=== PATIENT | male | born 1960 | race Caucasian/White ===

== ENCOUNTER → 2016-12-11 | Outpatient (CLI) | payer BC ==
--- NOTE | 2016-12-11 08:49 | XR ---
EXAMINATION TYPE: XR scoliosis survey DATE OF EXAM: 12/11/2016 8:37 AM COMPARISON: NONE HISTORY: Scoliosis FINDINGS: There is a S-shaped scoliotic curvature. Hypertrophic change and multilevel degenerative di sc disease noted. Scoliosis estimated at 18 degrees. IMPRESSION: 1. 18 degrees scoliotic curvature with multilevel degenerative disc disease.
[2016-12-11 08:52] LABS: Basophils % (A) 0 %; CH 30.3; CHCM 33.9; Eosinophils # (A) 0.2 k/uL (0-0.7); Eosinophils % (A) 2 %; HCT 40.8 % (39.0-53.0); HDW 2.61; HGB 13.7 gm/dL (13.0-17.5); Luc # (Auto) 0.14; Luc % (Auto) 2; Lymphocytes # (A) 1.2 k/uL (1.0-4.8); Lymphocytes % (A) 13 %; MCH 30.1 pg (25.0-35.0); MCHC 33.5 g/dL (31.0-37.0); MCV 89.9 fL (80.0-100.0); Mean Platelet Volume 6.9; Monocytes # (A) 0.8 k/uL (0-1.0); Monocytes % (A) 9 %; Neutrophils # (A) 6.7 k/uL (1.3-7.7); Neutrophils % (A) 74 %; RBC 4.54 m/uL (4.30-5.90); RDW 12.3 % (11.5-15.5); WBC (Perox) 9.53
[2016-12-11 13:05] LABS: ALT 42 U/L (21-72); AST 17 U/L (17-59); Alkaline Phosphatase 85 U/L (38-126); Anion Gap 11 mmol/L; Blood Urea Nitrogen 24 mg/dL (9-20); Calcium 9.8 mg/dL (8.4-10.2); Carbon Dioxide 29 mmol/L (22-30); Chloride 105 mmol/L (98-107); Cholesterol 188 mg/dL (<200); Glucose 104 mg/dL (74-99); HDL Cholesterol 49 mg/dL (40-60); Non-African American GFR(MDRD) >60 (>60 ml/min/1.73 sqM); Sodium 145 mmol/L (137-145); Total Bilirubin 0.6 mg/dL (0.2-1.3); Total Protein 7.4 g/dL (6.3-8.2); Triglycerides 94 mg/dL (<150)
[2016-12-11 13:49] LABS: Hepatitis C Virus IgG Index 0.01
[2016-12-11 13:56] LABS: Hepatitis C Virus IgG Ab Negative (Negative)
[2016-12-11 14:24] LABS: Prostate Specific Antigen 1.98 ng/mL (0.00-4.00)
== END | disposition home or self-care (01) ==
LOC: LABWHC1 08:10
PROVIDERS: ATTEND Family Medicine
DX: M41.9 Scoliosis, unspecified (principal); M51.9 Unspecified thoracic, thoracolumbar and lumbosacral intervertebral disc disorder
CPT/HCPCS: 36415; 72082; 80053; 80061; 84153; 84439; 84443; 85025; 86803

== ENCOUNTER → 2016-12-29 | Outpatient (CLI) | payer BC ==
--- NOTE | 2016-12-29 18:32 | XR ---
EXAMINATION TYPE: XR ribs RT DATE OF EXAM: 12/29/2016 6:13 PM COMPARISON: NONE HISTORY: Rib pain TECHNIQUE: 4 views FINDINGS: I see no pleural effusion or pneumothorax. Right lung is clear of infiltrate. There is no s ign of a rib fracture. IMPRESSION: Negative right rib exam.
== END | disposition home or self-care (01) ==
LOC: RADXRMAIN 17:58
PROVIDERS: ATTEND Family Medicine
DX: R07.81 Pleurodynia (principal)

== ENCOUNTER 2017-02-01 07:59 | Day surgery (SDC) | payer BC ==
[2017-01-28 09:37] VITALS: BMI 29.1
[~2017-02-01 07:59] MED LIST: DEXAMETHASONE SOD PHOSPHATE 10 MG/ML 1 ML VIAL IV ONE; HYDROmorphone 1 MG/ML 1 ML SYRINGE IVP PRN; LACTATED RINGERS 1,000 ML IV SCH; LIDOCAINE 1% 20 ML VIAL (10MG/ML) FOR IV START INTRADERMA PRN; MIDAZOLAM 2 MG/2 ML VIAL IV PRN; ONDANSETRON 4 MG/2 ML VIAL IVP ONE; Pre Op ABX Message 1 EACH MISC MISCELLANE ONE; SCOPOLAMINE 1.5MG/72HR PATCH TRANSDERM ONE
[2017-02-01] MEDS ORDERED: LACTATED RINGERS 1,000 ML IV ONE ×2 (08:21→11:39)
[2017-02-01] MEDS ORDERED: LIDOCAINE 1% 20 ML VIAL (10MG/ML) FOR IV START INTRADERMA ONE (08:27)
[2017-02-01] MEDS ORDERED: HEPARIN SODIUM,PORCINE 5,000 UNIT/ML 1 ML VIAL SQ ONE (08:41)
[2017-02-01] MEDS ORDERED: LIDOCAINE 1% INJ 10MG/ML (20 ML MDV) SQ ONE ×3 (08:49→09:53)
[2017-02-01] MEDS ORDERED: PHENYLEPHRINE-0.9% NACL SYG 1 MG/10 ML SYRINGE ONE (09:20)
[2017-02-01] MEDS ORDERED: PROPOFOL 10 MG/ML 20 ML VIAL IV ONE (09:20)
[2017-02-01] MEDS ORDERED: SUCCINYLCHOLINE CHLORIDE 100 MG/5 ML SYR IV ONE (09:20)
[2017-02-01] MEDS ORDERED: MIDAZOLAM 2 MG/2 ML VIAL ONE (09:20)
[2017-02-01] MEDS ORDERED: fentaNYL (PF) 50 MCG/ML 2 ML AMP ONE (09:20)
[2017-02-01] MEDS ORDERED: LIDOCAINE 1% INJ 10MG/ML (20 ML MDV) ONE (09:20)
--- NOTE | 2017-02-01 10:39 | P.OP ---
Date of Procedure: 02/01/17 Preoperative Diagnosis: Soft tissue mass on mid back Postoperative Diagnosis: Probable lipoma mid back Procedure(s) Performed: Excision of soft tissue mass mid back Anesthesia: MATIAS Surgeon: Judy Gaona Estimated Blood Loss (ml): 18 IV fluids (ml): 700 Pathology: other (Soft tissue mass mid back) Condition: stable Disposition: PACU Indications for Procedure: Patient is a 56-year-old gentleman with a soft tissue mass on his back which has increased in size and causing discomfort to him. Operative Findings: Probable lipoma mid back Description of Procedure: Patient is a 48-year-old gentleman with an increasing mass in his mid back. This is causing discomfort to him. We've discussed the fact that this most likely represents a lipoma however patient wishes it to be removed. Patient was taken to the operating room and following induction of anesthesia the back was prepped and draped in a sterile fashion. An incision was made over the palpable abnormality. This was carried down through the skin and subcutaneous tissue onto the area of the muscle of the mid back. Wide excision of a soft tissue probable lipoma was performed. The lesion was approximately 7 cm in length and approximately 5-1/2 cm wide. There were several vessels which were entering into this and these were ligated and divided. The lesion was removed on the fascia of the muscle of the back. The extension of the dissection was through the skin and subcutaneous tissue. After we were assured that hemostasis was attained the wound was irrigated. A small HUSAM drain was placed. The deep tissues were closed with 3-0 Vicryl suture. The skin was closed with interrupted mattress nylon sutures. The drain was secured with a silk suture. The patient tolerated the procedure in stable condition. All instrument and sponge counts were correct at the end of the case.
--- NOTE | 2017-02-01 10:41 | P.DS ---
Providers Attending physician: Judy Gaona Primary care physician: Sebastian Moy Plan - Discharge Summary New Discharge Prescriptions: HYDROcodone/APAP 5-325MG [Guys 5] 1 - 2 each PO Q4H PRN #20 tab PRN Reason: Pain Discharge Medication List Ibuprofen [Motrin] 600 mg PO Q6HR PRN 01/28/17 [History] HYDROcodone/APAP 5-325MG [Guys 5] 1 - 2 each PO Q4H PRN #20 tab 02/01/17 [Rx] Follow up Appointment(s)/Referral(s): Judy Gaona MD [STAFF PHYSICIAN] - 3 Days Activity/Diet/Wound Care/Special Instructions: Takes patient drain care Do not drive today Do not drive if taking Guys Patient may shower after 48 hours Keep pressure dressing on incision Discharge Disposition: HOME SELF-CARE
[2017-02-01 10:51] VITALS: TEMP 97.2
[2017-02-01 11:02] VITALS: RESP 18
[2017-02-01 12:04] VITALS: BP 168/92; PULSE 103
== END 2017-02-01 13:05 | disposition home or self-care (01) ==
LOC: OR 07:59
PROVIDERS: ATTEND Surgery
DX: D17.1 Benign lipomatous neoplasm of skin and subcutaneous tissue of trunk (principal); Z88.5 Allergy status to narcotic agent
CPT/HCPCS: 21931; 88304; J2250; J1644; J1100; J2405; J2001; J3010; J2370; J0330; J2704

== ENCOUNTER → 2017-10-12 | Outpatient (CLI) | payer BC ==
--- NOTE | 2017-10-12 14:12 | US ---
EXAMINATION TYPE: US venous doppler duplex LE LT DATE OF EXAM: 10/12/2017 1:50 PM COMPARISON: NONE CLINICAL HISTORY: M79.672 PAIN LT FOOT,M25.472 EFFUSION LT ANKLE,M25.572. SIDE PERFORMED: Left TECHNIQUE: The lower extremity deep venous system is examined utilizing real time linear array sonog mendez with graded compression, doppler sonography and color-flow sonography. VESSELS IMAGED: External Iliac Vein (EIV) Common Femoral Vein Deep Femoral Vein Greater Saphenous Vein * Femoral Vein Popliteal Vein Small Saphenous Vein * Proximal Calf Veins (* superficial vessels) Left Leg: Negative for DVT Grayscale, color doppler, spectral doppler imaging performed of the deep veins of the left lower extr emity. There is normal flow, compressibility, vascular waveforms. IMPRESSION: No ultrasound evidence for acute DVT in the left lower extremity.
== END | disposition home or self-care (01) ==
LOC: RADUSWWP 13:26
PROVIDERS: ATTEND Orthopaedic Surgery
DX: M19.072 Primary osteoarthritis, left ankle and foot (principal); M21.6X2 Other acquired deformities of left foot; I80.9 Phlebitis and thrombophlebitis of unspecified site

== ENCOUNTER → 2017-10-13 | Outpatient (CLI) | payer BC ==
[2017-10-13 07:30] LABS: CH 29.3; CHCM 32.8; HCT 37.6 % (39.0-53.0); HDW 2.69; MCH 28.7 pg (25.0-35.0); MCV 89.7 fL (80.0-100.0); Mean Platelet Volume 6.4; RBC 4.18 m/uL (4.30-5.90); RDW 12.2 % (11.5-15.5); WBC 9.6 k/uL (3.8-10.6)
[2017-10-13 09:43] LABS: ALT 34 U/L (21-72); AST 16 U/L (17-59); Alkaline Phosphatase 68 U/L (38-126); Anion Gap 9 mmol/L; Blood Urea Nitrogen 19 mg/dL (9-20); C Reactive Protein 89.5 mg/L (<10.0); Calcium 9.5 mg/dL (8.4-10.2); Carbon Dioxide 28 mmol/L (22-30); Chloride 106 mmol/L (98-107); Glucose 109 mg/dL (74-99); Non-African American GFR(MDRD) >60 (>60 ml/min/1.73 sqM); Potassium 4.8 mmol/L (3.5-5.1); Rheumatoid Factor, Qnt <9 IU/mL (<12); Sodium 143 mmol/L (137-145); Total Bilirubin 0.4 mg/dL (0.2-1.3)
[2017-10-13 11:38] LABS: ANA w/Reflex to Titer NEGATIVE (NEGATIVE)
[2017-10-13 12:20] LABS: Erythrocyte Sedimentation Rate 97 mm/hr (0-15)
[2017-10-14 10:04] LABS: Lyme IgG/IgM 0.5 Index; Lyme IgG/IgM Interp NEGATIVE (NEGATIVE)
[2017-10-14 12:57] LABS: HLA B27 Comment SEEBELOW
== END | disposition home or self-care (01) ==
LOC: LABWHC1 06:33
PROVIDERS: ATTEND Orthopaedic Surgery
DX: M19.072 Primary osteoarthritis, left ankle and foot (principal); M21.6X2 Other acquired deformities of left foot
CPT/HCPCS: 36415; 80053; 83036; 83520; 84443; 85027; 85652; 86038; 86060; 86140; 86431; 86618; 86812

== ENCOUNTER → 2017-11-02 | Outpatient (CLI) | payer BC ==
--- NOTE | 2017-11-03 08:57 | NM ---
EXAMINATION TYPE: NM WBC limited DATE OF EXAM: 11/03/2017 COMPARISON: NONE HISTORY: Left foot pain TECHNIQUE: Following administration of 25.8 mCi Tc99m Ceretec. Images obtained 4 hour(s) and 20 lelo r(s) post injection. FINDINGS: There is increased uptake within the soft tissues on the 20 hour image overlying the distal margin of the left foot. No definite uptake within the bone to suggest osteomyelitis. IMPRESSION: Correlate for cellulitis. No diagnostic evidence of osteomyelitis.
== END | disposition home or self-care (01) ==
LOC: RADNMMAIN 06:47
PROVIDERS: ATTEND Orthopaedic Surgery
DX: M25.472 Effusion, left ankle (principal)
CPT/HCPCS: 78805; A9569

== ENCOUNTER 2022-01-06 08:48 | Observation (INO) | payer BC ==
[2022-01-06] MEDS ORDERED: SODIUM CHLORIDE 0.9% 1,000 ML IV STA (09:23)
[2022-01-06] MEDS ORDERED: MECLIZINE 12.5 MG TAB PO STA ×2 (09:23→11:46)
[2022-01-06] MEDS ORDERED: ONDANSETRON 4 MG/2 ML VIAL IVP STA (09:23)
[2022-01-06 09:52] LABS: Basophils % (A) 0 %; Eosinophils # (A) 0.1 k/uL (0-0.7); Eosinophils % (A) 2 %; HCT 41.5 % (39.0-53.0); HGB 14.3 gm/dL (13.0-17.5); Lymphocytes # (A) 0.5 k/uL (1.0-4.8); Lymphocytes % (A) 7 %; MCH 32.4 pg (25.0-35.0); MCHC 34.4 g/dL (31.0-37.0); Mean Platelet Volume 7.3; Monocytes # (A) 0.4 k/uL (0-1.0); Monocytes % (A) 6 %; Neutrophils # (A) 5.9 k/uL (1.3-7.7); Neutrophils % (A) 83 %; Platelet Count 225 k/uL (150-450); RBC 4.42 m/uL (4.30-5.90); RDW 14.7 % (11.5-15.5)
[2022-01-06 10:11] LABS: ALT 29 U/L (4-49); AST 25 U/L (17-59); African American GFR (CKD) >90 (>60 ml/min/1.73 sqM); Albumin 4.1 g/dL (3.5-5.0); Alkaline Phosphatase 76 U/L (38-126); Anion Gap 7 mmol/L; Blood Urea Nitrogen 16 mg/dL (9-20); Calcium 9.1 mg/dL (8.4-10.2); Carbon Dioxide 24 mmol/L (22-30); Chloride 107 mmol/L (98-107); Glucose 134 mg/dL (74-99); Non-African American GFR(CKD) >90 (>60 ml/min/1.73 sqM); Potassium 3.9 mmol/L (3.5-5.1); Sodium 138 mmol/L (137-145); Total Bilirubin 0.7 mg/dL (0.2-1.3); Total Protein 7.1 g/dL (6.3-8.2)
--- NOTE | 2022-01-06 10:32 | CT ---
EXAMINATION TYPE: CT brain wo con DATE OF EXAM: 01/06/2022 COMPARISON: None available HISTORY: Dizziness CT DLP: 1089 mGycm Automated exposure control for dose reduction was used. TECHNIQUE: Multiplanar CT scan of the brain without IV contrast administration. FINDINGS: Linear right superior frontal hyperdensity seen extending from the extra-axial to intra-axial locatio n likely representing a prominent vein and DVA. Otherwise unremarkable morphology of the cerebral hem ispheres, cerebellum and brainstem. No acute intracranial hemorrhage or gross acute cortical infarct. No midline shift, herniation or osmel triculomegaly. Unremarkable chamberlain-white matter differentiation, basal cisterns, sella and CP angles. No gross space-occupying lesion, vasogenic edema or mass effect. Unremarkable orbits. Clear visualize d paranasal sinuses and mastoid air cells. Unremarkable calvarial bones. 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 Otherwise unremarkable nonenhanced CT scan o f the brain.
--- NOTE | 2022-01-06 10:34 | XR ---
EXAMINATION TYPE: XR chest 1V portable DATE OF EXAM: 01/06/2022 COMPARISON: NONE HISTORY: Pain TECHNIQUE: Single frontal view of the chest is obtained. FINDINGS: There is no focal air space opacity, pleural effusion, or pneumothorax seen. The cardiac silhouette size is within normal limits. The osseous structures are intact. Heart size normal. Hype rinflation suggests COPD. No overt failure. Curvature of the spine with degenerative changes. IMPRESSION: No acute process.
[2022-01-06 10:41] LABS: Appearance,Urine Clear (Clear); Bilirubin,Urine Negative (Negative); Blood,Urine Negative (Negative); Color,Urine Yellow; Glucose,Urine (UA) Negative (Negative); Ketones,Urine 2+ (Negative); Leukocyte Esterase,Urine Negative (Negative); Nitrite,Urine Negative (Negative); PH, Urine 6.5 (5.0-8.0); Protein,Urine Negative (Negative); Specific Gravity,Urine 1.022 (1.001-1.035); Urobilinogen,Urine <2.0 mg/dL (<2.0)
[2022-01-06 10:54] LABS: Amphetamine Screen,Urine Not Detected (NotDetected); Barbiturate Screen,Urine Not Detected (NotDetected); Benzodiazepines Screen,Urine Not Detected (NotDetected); Cocaine Screen,Urine Not Detected (NotDetected); Methadone Screen, Urine Not Detected (NotDetected); Opiate Screen,Urine Not Detected (NotDetected); Oxycodone Screen, Urine Not Detected (NotDetected); Phencyclidine Screen,Urine Not Detected (NotDetected); Tricyclic Antidepressant,Urine Not Detected (NotDetected); Urn Cannabinoid Scrn Not Detected (NotDetected)
--- NOTE | 2022-01-06 11:25 | CT ---
EXAMINATION TYPE: CT angio head neck DATE OF EXAM: 01/06/2022 HISTORY: dizziness COMPARISON: Nonenhanced CT scan performed at the same time CT DLP: 598.9 mGycm. Automated Exposure Control for Dose Reduction was Utilized. TECHNIQUE: CTA scan of the neck is performed with IV Contrast, patient injected with 65 mL of Isovue 370, axial images are obtained, coronal and sagittal reformatted images are reviewed. 3D reconstruct ed images are created on an independent workstation and reviewed. FINDINGS: Bovine aortic arch. Scattered arterial atherosclerotic calcifications. Mild atherosclerotic plaques a re seen at the origin of the left internal carotid artery without significant stenosis or occlusion. Otherwise normal caliber and enhancement of the carotid and vertebral arteries in the neck without si gnificant stenosis, occlusion, dissection, aneurysm or AV malformation. Prominent right superior anterior frontal extra-axial cortical vein passing inferiorly into the right frontal lobe parenchyma likely representing a DVA. No surrounding hematoma, edema or abnormal enhanc ement. type left APPRENTICE/LINEMAN. Otherwise normal caliber and enhancement of the intracranial arteries without significant stenosis, o cclusion or aneurysm. Patent major intracranial venous sinuses. No intracranial abnormal enhancement. Degenerative changes of the cervical spine. IMPRESSION: Findings are suggestive of right frontal DVA as described above. No acute arterial abnormality, signi ficant stenosis or occlusion seen in the head or the neck arteries. Incidental findings as described above.
[2022-01-06] MEDS ORDERED: ONDANSETRON 4 MG/2 ML VIAL IVP PRN (12:14)
[2022-01-06] MEDS ORDERED: NALOXONE 0.4 MG/ML 1 ML VIAL IV PRN (12:14)
--- NOTE | 2022-01-06 12:19 | ED ---
General Adult HPI - General Chief complaint: Dizziness Stated complaint: Dizziness Time Seen by Provider: 01/06/22 09:05 Source: EMS, RN notes reviewed, old records reviewed Mode of arrival: EMS Limitations: no limitations - History of Present Illness Initial comments: Patient is a 61-year-old male with past medical history remarkable for prior anemia presents emergency Department complaining of new onset vertigo. It started approximately 24 hours ago. I evaluated the patient at approximately 9:30. Vertigo started yesterday approximate 10 AM. Describes it as a room spins sensation with associated nausea and vomiting. No other deficits. His d ifficulty in relating secondary to vertigo. When he lays down flat it seems to be improved. Denies any chest pain, shortness of breath. Denies any weakness, numbness. Denies any blurry vision or visual changes. His no other acute point at this time. No history of strokes. History of alcohol use. No history of vertigo. Denies any upper respiratory symptoms, ear pain, nasal drainage. Presents for further evaluation. - Related Data Home Medications Medication Instructions Recorded Confirmed Celecoxib [CeleBREX] 100 mg PO BID 01/06/22 01/06/22 Ferrous Sulfate [Slow Release Iron] 140 mg PO DAILY 01/06/22 01/06/22 Folic Acid 1 mg PO DAILY 01/06/22 01/06/22 Pantoprazole [Protonix] 40 mg PO DAILY 01/06/22 01/06/22 metHOTREXate sodium [Methotrexate] 20 mg PO TH 01/06/22 01/06/22 Allergies Allergy/AdvReac Type Severity Reaction Status Date / Time No Known Allergies Allergy Verified 01/06/22 10:32 Review of Systems ROS Statement: Those systems with pertinent positive or pertinent negative responses have been documented in the HPI. Review of Systems: CONST: Denies fever EYES: Denies blurry vision ENT: Denies nasal congestion C/V: Denies Chest pain RESP: Denies shortness of breath GI: Denies abdominal pain : Denies dysuria SKIN: Denies rash. MSK: Denies joint pain. NEURO: Endorses vertigo ROS Other: All systems not noted in ROS Statement are negative. Past Medical History Past Medical History: No Reported History History of Any Multi-Drug Resistant Organisms: None Reported Past Surgical History: Appendectomy Past Anesthesia/Blood Transfusion Reactions: No Reported Reaction Past Psychological History: No Psychological Hx Reported Smoking Status: Never smoker Past Alcohol Use History: Occasional Past Drug Use History: None Reported - Past Family History Mother Family Medical History: Cancer Additional Family Medical History / Comment(s): BREAST CANCER Sister(s) Family Medical History: Cancer Additional Family Medical History / Comment(s): BREAST CANCER General Exam - General Exam Comments Initial Comments: General: Appears in mild distress secondary to vertigo. HEAD: Normal with no signs of head trauma. EYES: PERRLA, EOMI, conjunctiva normal, no discharge. Pupils are 3 mm equal bilaterally. No nystagmus. ENT: Hearing grossly intact, normal oropharynx. RESPIRATORY: Clear breath sounds bilaterally. No wheezes, rales, or rhonchi. C/V: Regular rate and rhythm. S1 and S2 auscultated, no edema, peripheral pulses 2+ and intact throughout ABD: Abd is soft, nontender, nondistended EXT: Normal range of motion, no obvious deformity SKIN: No rashes or lesions observed on exposed skin. NEURO: Alert and oriented 4. Cranial nerves II through XII are intact. No focal sensory strength deficits. Cerebellar function appears to be intact as evident by normal finger to nose testing, [id number] testing. There is no dysdiadochokinesia. NIH stroke scale is 0. GCS is 15. HINTS exam is negative. Hernan-Hallpike exam is indeterminate. Patient does have symptoms of vertigo upon sitting up or standing. Has difficulty walking. Limitations: no limitations Course Vital Signs 01/06/22 01/06/22 01/06/22 08:49 11:26 14:23 Temperature 98.7 F 97.6 F 97.8 F Pulse Rate 75 69 80 Respiratory 18 16 16 Rate Blood Pressure 155/92 147/84 157/86 O2 Sat by Pulse 95 98 96 Oximetry Medical Decision Making - Medical Decision Making Based on patient's presentation and physical exam, I'm concerned for new onset vertigo for the patient. No obvious etiology. Difficult to determine central versus peripheral cause at this point. We will obtain CT imaging of the brain as well as CT angiogram of the brain. We also obtain basic laboratory studies as well as a cardiac workup. He was in agreement this plan. He will be admiNistered meclizine as well as a 1 L fluid bolus. He'll also be given Zofran per patient was in agreement with this plan. EKG showed no signs of acute ischemia. Laboratory studies were remarkable for no acute process. 2+ ketones and urine now. Covid is negative. Chest x-ray showed no acute cardiopulmonary process. Brain CT is did reveal developmental venous anomalies in the right frontal lobe, however no other acute process. CT angiogram redemonstrated the DVAs, however no other acute abnormality. On reevaluation, patient's vertigo is improved however still noticeably present when standing. Cannot ambulate. I would like to admit him at this time for further neurological evaluation and MRI. He was in agreement this plan. I consulted Dr. Blanco of neurology who agreed to evaluate the patient. MRI was ordered. I also spoke with the admitting team, Dr. Hong who accepted the patient. Patient will be admitted in stable condition at this time. - Lab Data Result diagrams: 01/06/22 09:40 01/06/22 09:40 Lab Results 01/06/22 01/06/22 01/06/22 Range/Units 09:40 09:40 09:40 WBC 7.0 (3.8-10.6) k/uL RBC 4.42 (4.30-5.90) m/uL Hgb 14.3 (13.0-17.5) gm/dL Hct 41.5 (39.0-53.0) % MCV 94.0 (80.0-100.0) fL MCH 32.4 (25.0-35.0) pg MCHC 34.4 (31.0-37.0) g/dL RDW 14.7 (11.5-15.5) % Plt Count 225 (150-450) k/uL MPV 7.3 Neutrophils % 83 % Lymphocytes % 7 % Monocytes % 6 % Eosinophils % 2 % Basophils % 0 % Neutrophils # 5.9 (1.3-7.7) k/uL Lymphocytes # 0.5 L (1.0-4.8) k/uL Monocytes # 0.4 (0-1.0) k/uL Eosinophils # 0.1 (0-0.7) k/uL Basophils # 0.0 (0-0.2) k/uL Sodium 138 (137-145) mmol/L Potassium 3.9 (3.5-5.1) mmol/L Chloride 107 (98-107) mmol/L Carbon Dioxide 24 (22-30) mmol/L Anion Gap 7 mmol/L BUN 16 (9-20) mg/dL Creatinine 0.80 (0.66-1.25) mg/dL Est GFR (CKD-EPI)AfAm >90 (>60 ml/min/1.73 sqM) Est GFR (CKD-EPI)NonAf >90 (>60 ml/min/1.73 sqM) Glucose 134 H (74-99) mg/dL Plasma Lactic Acid Barry 1.0 (0.7-2.0) mmol/L Calcium 9.1 (8.4-10.2) mg/dL Total Bilirubin 0.7 (0.2-1.3) mg/dL AST 25 (17-59) U/L ALT 29 (4-49) U/L Alkaline Phosphatase 76 (38-126) U/L Total Protein 7.1 (6.3-8.2) g/dL Albumin 4.1 (3.5-5.0) g/dL Urine Color Urine Appearance (Clear) Urine pH (5.0-8.0) Ur Specific Tribune (1.001-1.035) Urine Protein (Negative) Urine Glucose (UA) (Negative) Urine Ketones (Negative) Urine Blood (Negative) Urine Nitrite (Negative) Urine Bilirubin (Negative) Urine Urobilinogen (<2.0) mg/dL Ur Leukocyte Esterase (Negative) Urine Opiates Screen (NotDetected) Ur Oxycodone Screen (NotDetected) Urine Methadone Screen (NotDetected) Ur Propoxyphene Screen (NotDetected) Ur Barbiturates Screen (NotDetected) U Tricyclic Antidepress (NotDetected) Ur Phencyclidine Scrn (NotDetected) Ur Amphetamines Screen (NotDetected) U Methamphetamines Scrn (NotDetected) U Benzodiazepines Scrn (NotDetected) Urine Cocaine Screen (NotDetected) U Marijuana (THC) Screen (NotDetected) 01/06/22 Range/Units 10:20 WBC (3.8-10.6) k/uL RBC (4.30-5.90) m/uL Hgb (13.0-17.5) gm/dL Hct (39.0-53.0) % MCV (80.0-100.0) fL MCH (25.0-35.0) pg MCHC (31.0-37.0) g/dL RDW (11.5-15.5) % Plt Count (150-450) k/uL MPV Neutrophils % % Lymphocytes % % Monocytes % % Eosinophils % % Basophils % % Neutrophils # (1.3-7.7) k/uL Lymphocytes # (1.0-4.8) k/uL Monocytes # (0-1.0) k/uL Eosinophils # (0-0.7) k/uL Basophils # (0-0.2) k/uL Sodium (137-145) mmol/L Potassium (3.5-5.1) mmol/L Chloride (98-107) mmol/L Carbon Dioxide (22-30) mmol/L Anion Gap mmol/L BUN (9-20) mg/dL Creatinine (0.66-1.25) mg/dL Est GFR (CKD-EPI)AfAm (>60 ml/min/1.73 sqM) Est GFR (CKD-EPI)NonAf (>60 ml/min/1.73 sqM) Glucose (74-99) mg/dL Plasma Lactic Acid Barry (0.7-2.0) mmol/L Calcium (8.4-10.2) mg/dL Total Bilirubin (0.2-1.3) mg/dL AST (17-59) U/L ALT (4-49) U/L Alkaline Phosphatase (38-126) U/L Total Protein (6.3-8.2) g/dL Albumin (3.5-5.0) g/dL Urine Color Yellow Urine Appearance Clear (Clear) Urine pH 6.5 (5.0-8.0) Ur Specific Tribune 1.022 (1.001-1.035) Urine Protein Negative (Negative) Urine Glucose (UA) Negative (Negative) Urine Ketones 2+ H (Negative) Urine Blood Negative (Negative) Urine Nitrite Negative (Negative) Urine Bilirubin Negative (Negative) Urine Urobilinogen <2.0 (<2.0) mg/dL Ur Leukocyte Esterase Negative (Negative) Urine Opiates Screen Not Detected (NotDetected) Ur Oxycodone Screen Not Detected (NotDetected) Urine Methadone Screen Not Detected (NotDetected) Ur Propoxyphene Screen Not Detected (NotDetected) Ur Barbiturates Screen Not Detected (NotDetected) U Tricyclic Antidepress Not Detected (NotDetected) Ur Phencyclidine Scrn Not Detected (NotDetected) Ur Amphetamines Screen Not Detected (NotDetected) U Methamphetamines Scrn Not Detected (NotDetected) U Benzodiazepines Scrn Not Detected (NotDetected) Urine Cocaine Screen Not Detected (NotDetected) U Marijuana (THC) Screen Not Detected (NotDetected) - EKG Data -: EKG Interpreted by Me EKG Comments: 12-lead Electrocardiogram Interpretation Note EKG was reviewed and interpreted by myself. 12-lead ECG performed at 0855 is interpreted by me as revealing normal sinus rhythm at a rate of 68 beats per minute. Narvon is normal. WA interval is 175 ms, QRS duration is 92 ms, QTc is 434 ms.. There were no ST or T wave abnormalities to suggest myocardial ischemia or injury. R wave progression across the precordium was satisfactory. By my interpretation this EKG is non-diagnostic for acute ischemia. Disposition Clinical Impression: Vertigo Disposition: ADMITTED IP TO THIS HOSP Condition: Stable
--- NOTE | 2022-01-06 13:01 | P.HPIM ---
History of Present Illness This is a pleasant 61 years old male with no significant past medical history presents because of dizziness. he has history of recurrent cholangitis and he sees a catering coordinator. But last attack was about 4 years ago. Patient states yesterday morning he started having dizziness and felt like the room is spinning, it was severe enough to prevent him from walking associated with significant nausea but no vomiting, patient was not able to eat or have bowel movements is yesterday because of these. Denies any other symptoms, no headache or weakness or numbness. No blurred vision or slurred speech. 1 week earlier he saw his spot washer and diagnosed with right eye glaucoma and pain behind the right eye which is resolved now, her his spot washer treated him with monitoring for now with no medication. He denies chest pain or dyspnea. No abdominal pain. No urinary complaints. No fever He denies smoking, alcohol or illicit drugs Hemodynamically stable. Labs show an unremarkable CBC, BMP, liver enzymes, lactic acid is normal 1.0. Glucose is slightly up 134, urinalysis is negative except for 2+ ketones, urine drug screen is negative. CT of the brain: Suspect right superior frontal DVA (developmental venous an omaly) Chest x-ray: No acute process. CTA of the brain: Findings are suggestive of right frontal DVA. No acute arterial abnormality, significant stenosis or occlusion seen in the head or the neck arteries. In the emergency room patient was started on meclizine, normal saline Admitted with neurology consult Review of Systems CONSTITUTIONAL: No fever, no malaise, no fatigue. HEENT: No recent visual problems or hearing problems. Denied any sore throat. CARDIOVASCULAR: No orthopnea, PND, no palpitations, no syncope. PULMONARY: No shortness of breath, no cough, no hemoptysis. GASTROINTESTINAL: No diarrhea, no nausea, no vomiting, no abdominal pain. Normoactive bowel sounds. NEUROLOGICAL: No headaches, no weakness, no numbness. HEMATOLOGICAL: Denies any bleeding or petechiae. GENITOURINARY: Denies any burning micturition, frequency, or urgency. MUSCULOSKELETAL/RHEUMATOLOGICAL: Denies any joint pain, swelling, or any muscle pain. ENDOCRINE: Denies any polyuria or polydipsia. Past Medical History Past Medical History: No Reported History History of Any Multi-Drug Resistant Organisms: None Reported Past Surgical History: Appendectomy Past Anesthesia/Blood Transfusion Reactions: No Reported Reaction Past Psychological History: No Psychological Hx Reported Smoking Status: Never smoker Past Alcohol Use History: Occasional Past Drug Use History: None Reported - Past Family History Mother Family Medical History: Cancer Additional Family Medical History / Comment(s): BREAST CANCER Sister(s) Family Medical History: Cancer Additional Family Medical History / Comment(s): BREAST CANCER Medications and Allergies Home Medications Medication Instructions Recorded Confirmed Type Celecoxib [CeleBREX] 100 mg PO BID 01/06/22 01/06/22 History Ferrous Sulfate [Slow Release Iron] 140 mg PO DAILY 01/06/22 01/06/22 History Folic Acid 1 mg PO DAILY 01/06/22 01/06/22 History Pantoprazole [Protonix] 40 mg PO DAILY 01/06/22 01/06/22 History metHOTREXate sodium [Methotrexate] 20 mg PO TH 01/06/22 01/06/22 History Allergies Allergy/AdvReac Type Severity Reaction Status Date / Time No Known Allergies Allergy Verified 01/06/22 10:32 Physical Exam Vitals: Vital Signs Temp Pulse Resp BP Pulse Ox 01/06/22 11:26 97.6 F 69 16 147/84 98 01/06/22 08:49 98.7 F 75 18 155/92 95 Intake and Output 01/05/22 01/06/22 01/06/22 22:59 06:59 14:59 Other: Weight 97.522 kg GENERAL: The patient is alert and oriented x3, not in any acute distress. Well developed, well nourished. HEENT: Pupils are round and equally reacting to light. EOMI. No scleral icterus. No conjunctival pallor. Normocephalic, atraumatic. No pharyngeal erythema. No thyromegaly. CARDIOVASCULAR: S1 and S2 present. No murmurs, rubs, or gallops. PULMONARY: Chest is clear to auscultation, no wheezing or crackles. ABDOMEN: Soft, nontender, nondistended, normoactive bowel sounds. No palpable organomegaly. MUSCULOSKELETAL: No joint swelling or deformity. EXTREMITIES: No cyanosis, clubbing, or pedal edema. NEUROLOGICAL: Gross neurological examination did not reveal any focal deficits. SKIN: No rashes. 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 Plan: this is a pleasant 61 years old male who presents with acute vertigo Continue with meclizine when necessary, continue with IV fluid Neurology consult Labs and medication were reviewed.. Continue same treatment. Continue with symptomatic treatment. Resume home medication. Monitor lytes and vitals. DVT and GI prophylaxis. Further recommendations depends on the clinical course of the patient DVT prophylaxis: Subcutaneous heparin GI Prophylaxis: Ppi PT/OT: Pending Prognosis is guarded
[2022-01-06] MEDS: MECLIZINE 25 MG TAB PO PRN (17:22)
[2022-01-06] MEDS: SODIUM CHLORIDE 0.9% 1,000 ML IV SCH (18:21)
[2022-01-06] MEDS: HEPARIN SODIUM,PORCINE/PF 5,000 UNIT/0.5 ML SYRINGE SQ SCH (19:54)
[2022-01-06] MEDS ORDERED: FAMOTIDINE 20 MG/2 ML VIAL IV SCH (21:00)
[2022-01-07] MEDS: SODIUM CHLORIDE 0.9% 1,000 ML IV SCH (00:39)
[2022-01-07] MEDS: MECLIZINE 25 MG TAB PO PRN ×2 (00:39→08:41)
[2022-01-07 07:51] VITALS: RESP 16
[2022-01-07] MEDS: HEPARIN SODIUM,PORCINE/PF 5,000 UNIT/0.5 ML SYRINGE SQ SCH (08:41)
[2022-01-07] MEDS ORDERED: FOLIC ACID 1 MG TAB PO SCH (09:00)
[2022-01-07] MEDS ORDERED: PANTOPRAZOLE 40 MG TABLET PO SCH (09:00)
[2022-01-07] MEDS ORDERED: ASPIRIN 81 MG PO STA (09:25)
--- NOTE | 2022-01-07 09:27 | P.CNNES ---
History of Present Illness Consult date: 01/06/22 Requesting physician: Slava Bradley Reason for Consult: New onset vertigo History of Present Illness: Patient is a 61-year-old male came to the hospital by ambulance this morning at 8:48 AM for vertigo. Patient states that yesterday at around 10:45 AM he had just finished repair of 's bathroom sink when he started noticing the room was spinning, with nausea. He did not perform any activity out of the ordinary while repairing the sink. He sat down in the lazy boy chair and did not feel better. He stayed in chair for several hours and at around 5 PM he tried to get up, could not stand or walk. While going upstairs, he started dry heaving. He crawled up stairs to the main floor into his bedroom in his bed. He slept overnight. This morning he woke up and he was not feeling any better therefore he came to the hospital. As per EMS flow sheet, patient could not sit upright without leaning to the ri ght and 4 showed could not stand without falling over and dry heaving. He was given Zofran 4 mg IM. Patient's blood pressure supine was 220/. And 10, pulse rate 80, respiration 14. On sitting up, blood pressure was 210/110 with pulse of 80. The blood pressure did improve to 151/69. Vital signs arrival blood pressure was 155/92. Patient's blood test shows normal CBC, CMP, UA and a urine drug screen. Cobb virus PCR negative. Computed tomography scan of head showed suspected right superior frontal DVA. Otherwise unremarkable nonenhanced computed tomography scan of the head. I reviewed computed tomography scan of the head personally and agree with the findings. CTA of head and neck showed findings suggestive of right frontal DVA. No acute arterial abnormality, significant stenosis or occlusion seen in the head or neck arteries. No aneurysm. EKG shows sinus rhythm. Chest x-ray showed no acute process. Patient denied any numbness tingling focal weakness, facial droop, slurred speech, diplopia, or dysphagia. Denies any problems with incoordination. Patient denies any history of vertigo ever in the past. Denies any tinnitus, no loss of hearing, no pain or clicks or pops in the ear. No recent sinus infection. Patient denies any history of hypertension, no diabetes, never smoked, occasionally drinks alcohol. He does not take any blood thinners or antiplatelet medication. At present patient states that as long as he is laying in the bed he is fine, but as soon as he tries to sit up, or walk, he starts feeling very dizzy with vertigo. Review of Systems As mentioned above in HPI. All other 14 point of review systems reviewed and u nremarkable. Past Medical History Past Medical History: No Reported History Additional Past Medical History / Comment(s): anemia, "inflammation of cartliage" History of Any Multi-Drug Resistant Organisms: None Reported Past Surgical History: Appendectomy Past Anesthesia/Blood Transfusion Reactions: No Reported Reaction Past Psychological History: No Psychological Hx Reported Smoking Status: Never smoker Past Alcohol Use History: Occasional Past Drug Use History: None Reported - Past Family History Mother Family Medical History: Cancer Additional Family Medical History / Comment(s): BREAST CANCER Sister(s) Family Medical History: Cancer Additional Family Medical History / Comment(s): BREAST CANCER Medications and Allergies Home Medications Medication Instructions Recorded Confirmed Type Celecoxib [CeleBREX] 100 mg PO BID 01/06/22 01/06/22 History Ferrous Sulfate [Slow Release Iron] 140 mg PO DAILY 01/06/22 01/06/22 History Folic Acid 1 mg PO DAILY 01/06/22 01/06/22 History Pantoprazole [Protonix] 40 mg PO DAILY 01/06/22 01/06/22 History metHOTREXate sodium [Methotrexate] 20 mg PO TH 01/06/22 01/06/22 History Allergies Allergy/AdvReac Type Severity Reaction Status Date / Time No Known Allergies Allergy Verified 01/06/22 10:32 Physical Examination - Vital Signs Vital Signs: Vital Signs Temp Pulse Pulse Pulse Resp BP BP 01/07/22 08:16 01/07/22 07:40 98 F 73 16 164/77 01/07/22 00:41 98.6 F 76 17 120/68 01/06/22 19:26 98.1 F 76 15 147/67 01/06/22 19:11 01/06/22 18:17 98.2 F 78 18 137/77 01/06/22 14:23 97.8 F 80 16 157/86 01/06/22 11:26 97.6 F 69 16 147/84 Pulse Ox 01/07/22 08:16 95 01/07/22 07:40 97 01/07/22 00:41 95 01/06/22 19:26 94 L 01/06/22 19:11 93 L 01/06/22 18:17 96 01/06/22 14:23 96 01/06/22 11:26 98 Intake and Output 01/06/22 01/07/22 01/07/22 22:59 06:59 14:59 Intake Total 240 Output Total 650 Balance 240 -650 Intake: Oral 240 Output: Urine 650 Other: # Voids 2 Patient is a late middle aged male, in no acute distress. Patient is alert awake oriented to time place and person. Speech and language functions are normal. Attention, concentration and fund of knowledge is adequate. On cranial examination, pupils are equal, round and reacting to light, visual cuevas are full on confrontation, extraocular muscles are intact with no nystagmus. Face is symmetric, tongue protrudes to the midline. Palatal elevation and sensation normal, hearing and shoulder shrug normal, facial sensation normal. Shoulder shrug normal. No Flores's syndrome. On muscle strength testing, there is no pronator drift and the strength is normal in arms and legs distally and proximally. Deep tendon reflexes are 1 at the biceps, 1+ brachioradialis, 2 at the knees 1 ankles and plantars downgoing bilaterally. Sensory to touch is equal with no neglect. Cerebellar function showed no ataxia for [id number] testing. No dysdiadochokinesia. Tone and bulk of muscles normal. No ataxia for [id number] testing. Gait not checked because of dizziness. On general examination, there is no carotid bruit or murmur, S1-S2 audible. Abdomen is soft nontender. Chest is clear. Peripheral pulses are present. No edema. Results - Laboratory Findings CBC and BMP: 01/06/22 09:40 01/06/22 09:40 Abnormal Lab Findings: Abnormal Labs 01/06/22 01/06/22 01/06/22 09:40 09:40 10:20 Lymphocytes # 0.5 L Glucose 134 H Urine Ketones 2+ H Assessment and Plan Assessment: * Acute onset of vertigo with nausea vomiting. Patient's neurological examination is nonfocal. Differential diagnosis is between peripheral vertigo, likely labyrinthitis versus vertigo related to hypertensive urgency, less likely cerebellar ischemia. 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 Plan: * Aspirin 325 mg daily. * MRI of the brain rule out CVA. * Optimize control of blood pressure. * Continue meclizine and Zofran. Pepcid for gastric ulcer prophylaxis. * We will follow.
[2022-01-07 11:09] LABS: Basophils # (A) 0.05 X 10*3/uL (0.00-0.10); Basophils % (A) 0.7 %; Eosinophils # (A) 0.13 X 10*3/uL (0.04-0.35); Eosinophils % (A) 1.7 %; HCT 41.5 % (39.6-50.0); HGB 13.2 g/dL (13.0-17.0); Immature Grans, Automated 0.5 %; Lymphocytes # (A) 0.92 X 10*3/uL (0.90-5.00); MCH 30.8 pg (27.0-32.0); MCHC 31.8 g/dL (32.0-37.0); MCV 96.7 fL (80.0-97.0); Mean Platelet Volume 9.6 fL (9.5-12.2); Monocytes # (A) 1.07 X 10*3/uL (0.20-1.00); NRBC Per 100 WBC 0 /100 WBCS (0.0-0.0); Neutrophils # (A) 5.46 X 10*3/uL (1.80-7.70); Neutrophils % (A) 71.1 %; Platelet Count 283 X 10*3/uL (140-440); RBC 4.29 X 10*6/uL (4.40-5.60); RDW 14.5 % (11.5-14.5); WBC 7.67 X 10*3/uL (4.50-10.00)
[2022-01-07 11:47] LABS: African American GFR (CKD) 92.4 (60.0-200.0); Albumin 3.9 g/dL (3.8-4.9); Albumin/Globulin Ratio 1.86 (1.60-3.17); Anion Gap 11.3 mmol/L (10.00-18.00); BUN/Creat Ratio 14.9 Ratio (12.00-20.00); Blood Urea Nitrogen 14.9 mg/dL (9.0-27.0); Calcium 8.8 mg/dL (8.7-10.3); Carbon Dioxide 25.7 mmol/L (20.0-27.5); Globulin 2.1 g/dL (1.6-3.3); Non-African American GFR(CKD) 79.7 (60.0-200.0); Potassium 4.2 mmol/L (3.5-5.5); Total Bilirubin 0.3 mg/dL (0.30-1.20)
--- NOTE | 2022-01-07 11:49 | MR ---
EXAMINATION TYPE: MR brain wo/w con DATE OF EXAM: 01/07/2022 COMPARISON: CT brain 01/06/2022 HISTORY: Vertigo TECHNIQUE: Multiplanar, multisequence images of the brain and brainstem is performed without and with IV contras t, utilizing 9.5 mL intravenous Gadavist . FINDINGS: Diffusion weighted images demonstrate no evidence of a recent infarct or other diffusion ab normality. There is no extra-axial fluid collection or significant white matter signal abnormality. The ventricular system and cisternal spaces are normal in size and appearance. The brain volume is age appropriate. Midline structures demonstrate normal morphology. The craniocervical junction appears within normal limits. Post contrast images demonstrate wispy enhancement involving the right frontal lobe, caput m edusae sign. The dural venous sinuses appear patent. The visualized sinuses are remarkable for inflam matory change in the ethmoid air cells and the globes are intact. IMPRESSION: Findings consistent with developmental venous anomaly
[2022-01-07 13:48] VITALS: BP 160/76; PULSE 65; TEMP 98.7
--- NOTE | 2022-01-07 22:43 | P.DS ---
Providers Date of admission: 01/06/22 12:14 Attending physician: Jaime Hong MD Consults: 01/06/22 12:15 Consult Physician Routine Consulting Provider: Yesi Blanco Consult Reason/Comments: vertigo, new onset Do you want consulting provider notified?: Yes Primary care physician: Physician Nonstaff Hospital Course: Diagnoses: Acute vertigo, associated with nausea vomiting. MRI of the brain showing no infarct. Significantly improved and cleared by neurologist for discharge right superior frontal DVA (developmental venous anomaly) Overweight with a BMI of 29.2. Hospital Course: This is a pleasant 61 years old male with no significant past medical history presents because of dizziness. he has history of recurrent cholangitis and he sees a sheep farm worker. But last attack was about 4 years ago. Patient states yesterday morning he started having dizziness and felt like the room is spinning, it was severe enough to prevent him from walking associated with significant nausea but no vomiting, Patient was admitted to the hospital, evaluated by neurologist to start him on aspirin and MRI of the brain is ordered. CT of the brain: Suspect right superior frontal DVA (developmental venous a nomaly) CTA of the brain: Findings are suggestive of right frontal DVA. No acute arterial abnormality, significant stenosis or occlusion seen in the head or the neck arteries. MRI of the brain showing developmental venous anomaly. No evidence of recent infarct or other diffusion abnormality. I discussed the case with the neurologist today who cleared him for discharge and go home on aspirin and meclizine as needed. Physical therapist evaluated the patient and patient does not need to rehab upon discharge Patient informed and he agrees to go home today. He states that his dizziness/vertigo significantly improved, nausea vomiting resolved and he tolerates diet and he can go home. He denies chest pain or dyspnea. No change in urine or bowel habits. No fever. Patient was cleared for discharge by neurologist Problems and management plan were discussed with the patient and he verbalized understanding and acceptance Patient was found stable and can be discharged home however he needs follow-up as an outpatient. Patient was instructed to follow up with PCP within one week and patient agrees Patient was instructed to follow up with a neurologist in one week and Dr. Leal and are suggested for him and he agrees to call and make his own appointment . Also patient referred to ENT Dr. Way in one week if symptoms persist and he agrees. Of note patient denies any hearing loss or tinnitus upon discharge Physical exam Gen: patient is a AAOx3, no distress CVS: S1-S2, RRR, no murmur Lungs: B/L CTA, no wheezing Abdomen: soft, no distention, no tenderness, positive bowel sounds Extremity: no leg edema or induration Time spent more than 35 minutes Patient Condition at Discharge: Stable Plan - Discharge Summary New Discharge Prescriptions: New Aspirin 81 mg PO DAILY #30 Meclizine [Antivert] 25 mg PO TID PRN #60 tab PRN Reason: Vertigo Continue Pantoprazole [Protonix] 40 mg PO DAILY metHOTREXate sodium [Methotrexate] 20 mg PO TH Folic Acid 1 mg PO DAILY Ferrous Sulfate [Slow Release Iron] 140 mg PO DAILY Discontinued Celecoxib [CeleBREX] 100 mg PO BID Discharge Medication List Ferrous Sulfate [Slow Release Iron] 140 mg PO DAILY 01/06/22 [History] Folic Acid 1 mg PO DAILY 01/06/22 [History] Pantoprazole [Protonix] 40 mg PO DAILY 01/06/22 [History] metHOTREXate sodium [Methotrexate] 20 mg PO TH 01/06/22 [History] Aspirin 81 mg PO DAILY #30 01/07/22 [Rx] Meclizine [Antivert] 25 mg PO TID PRN #60 tab 01/07/22 [Rx] Follow up Appointment(s)/Referral(s): Justina Clifton MD [REFERRING] - 1 Week (neurologist , nerve doctor please call for an appointment ) Chi Way DO [Doctor of Osteopathic Medicine] - 1 Week (ear doctor -ENT please call for an appointment may need a referral from primary care drDashawn ) All Leal MD [Medical Doctor] - 1 Week (neurologist , nerve doctor please call for an appointment ) Nonstaff,Physician [Primary Care Provider] - 1-2 days (, your primary care doctor , you have the contact information as you informed the medical team) Patient Instructions/Handouts: Vertigo (GEN), Syncope (GEN) Activity/Diet/Wound Care/Special Instructions: Resume previous diet Activity is restricted till you see your doctor Discharge Disposition: HOME SELF-CARE
[2022-01-08] MEDS ORDERED: ASPIRIN 81 MG PO SCH (09:00)
--- NOTE | 2022-01-09 23:45 | P.PN ---
Subjective Progress Note Date: 01/07/22 Patient was seen for a follow-up. Patient's was also present today. Patient is feeling much better. Denies any focal symptoms like numbness tingling double vision, slurred speech facial droop. Patient states that when he turns his head, he is not as dizzy. He was able to walk in the hallway and appeared quite steady. He wants to go home. Patient states that he does not drink excessive coffee, no pops. He is to drink a lot of pops in the past but stopped in September 2021. 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 Cranial nerves are normal. Muscle strength normal. No ataxia. - Labs CBC & Chem 7: 01/07/22 05:45 01/07/22 05:45 Labs: Abnormal Lab Results - Last 24 Hours (Table) 01/07/22 01/07/22 Range/Units 05:45 05:45 RBC 4.29 L (4.40-5.60) X 10*6/uL MCHC 31.8 L (32.0-37.0) g/dL Monocytes # 1.07 H (0.20-1.00) X 10*3/uL Total Protein 6.0 L (6.2-8.2) g/dL Assessment and Plan Assessment: * Acute onset of vertigo with nausea vomiting. Patient's neurological examination is nonfocal. Probable labyrinthitis aggravated by uncontrolled hypertension. 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 * B12 borderline. Plan: * MRI of the brain revealed no acute stroke. I personally reviewed MRI and agree with the findings. There is presence of developmental venous anomaly. This appears benign. I discussed with Dr. Jackman, radiologist, who agree is most likely benign. No further workup indicated. * Patient has received aspirin 325 mg for 2 days. Patient can be discharged on aspirin 81 mg daily. * We will check B12 level. Results be followed up as an outpatient. Patient also on folic acid 1 mg daily. Patient already takes folic acid because of being on methotrexate. * Optimize control of blood pressure. * Continue meclizine and Zofran. Pepcid for gastric ulcer prophylaxis. * Neurologically clear for discharge. Addendum: Tried to call patient, he did not slat pickler the phone. Called patient's and spoke to her on the phone today on 01/10/2022. Patient is still feeling sligh tly dizzy, although better. Patient's B12 is borderline 296. Recommended patient to start vitamin B12 1000 g to 2500 g sublingually daily. Also recommended to have patient check fasting lipid panel through his primary physician. If abnormal, would need statins. Patient has an appointment with his primary physician on 01/12/2022. Patient's was also recommended to buy a digital blood pressure apparatus, and keep a close watch on the blood pressure.
== END 2022-01-07 14:41 | disposition home or self-care (01) ==
LOC: EC 08:48 → 6NMEDSUR 12:14
PROVIDERS: ADMIT Internal Medicine; ATTEND Internal Medicine
DX: R42 Dizziness and giddiness (principal); R11.2 Nausea with vomiting, unspecified; M94.1 Relapsing polychondritis; I10 Essential (primary) hypertension; Q28.3 Other malformations of cerebral vessels; H40.9 Unspecified glaucoma; D64.9 Anemia, unspecified; I49.3 Ventricular premature depolarization; I49.1 Atrial premature depolarization; R26.2 Difficulty in walking, not elsewhere classified; E66.3 Overweight; Z68.29 Body mass index [BMI] 29.0-29.9, adult; Z20.822 Contact with and (suspected) exposure to COVID-19; Z79.1 Long term (current) use of non-steroidal anti-inflammatories (NSAID); Z79.899 Other long term (current) drug therapy; Z90.49 Acquired absence of other specified parts of digestive tract; Z80.3 Family history of malignant neoplasm of breast
CPT/HCPCS: 96372 ×2; 96361; 96374; 99285; 36415; 94760; 93005; 97116; 97162; 97166; 80053 ×2; 82607; 83605; 85025 ×2; 81003; 80306; 87635; 71045; 70496; 70450; 70498; 70553; G0378 ×2; J2405; Q9967; J1644 ×2; A9585